=== PATIENT | male | born 1970 | race Caucasian/White ===

== ENCOUNTER 2016-09-20 15:55 | Inpatient (IN) | payer OTHER ==
--- NOTE | ~2016-09-20 | A ---
[facility] Nutrition Therapy DATE: 09/22/16 Patient: KATY DONALDUTSON Physician: EMELY Address: [facility] Room/Bed: [address], Zip: [place] [address] Admit Date: 09/20/16 Date of : [birth year] Height: 5 10 Weight: [phone] NUTRITIONAL ASSESSMENT: REASON: Large entree request Anthropometrics: BMI: 39 (Stage II obese) Labs: A!C 5.9, glucose well controlled Diet: Consistent carb Recommendations: Due to the patients BMI indicating obesity he is not appropriate to receive large portion entrees, however we will send large portion F/V with dinner. Respectfully, Vickie Church RD, LD Food and Nutritional Services [facility] cc: client file
--- NOTE | ~2016-09-20 | HP ---
Unit #: [id number] #: [id number] Patient: ALEXIS HARRISON [id number] [place] [address] [id number] MR#: [id number] NAME: ALEXIS HARRISON. ROOM: P175 Age: 46 Sex: M Admission Date: 09/20/2016 : 1970 Attending Physician: Angel Castellanos M.D. Admitting Physician: Angel Castellanos M.D. Primary Care Physician: Primary Care Physician No HISTORY AND PHYSICAL HISTORY OF PRESENT ILLNESS Alexis Harrison is a 46 year old admitted to [facility] because of his abuse of alcohol. He is detoxing. PAST MEDICAL HISTORY 1. Long history of alcohol abuse. 2. Diabetes mellitus. 3. High blood pressure. 4. Morbid obesity. PAST SURGICAL HISTORY Nothing reported. ALLERGIES Xanax, Prozac, Remeron. SOCIAL HISTORY Dips snuff. Drinks at least a fifth of liquor on a daily basis. Admits to using marijuana frequently and has a history of other illicit drug use to include cocaine and amphetamines. FAMILY HISTORY Medically noncontributory. REVIEW OF SYSTEMS CONSTITUTIONAL: No fever or chills. HEENT: Denies any sore throat, ear pain or runny nose. CARDIOVASCULAR: Denies chest pain, irregular heart rhythm or palpitations. CHEST: Denies shortness of breath or cough. No hemoptysis. GASTROINTESTINAL: Denies nausea, vomiting, diarrhea or chronic constipation. ENDOCRINE: Denies history of increased thirst or urination. No recent significant weight loss or gain. GENITOURINARY: Denies dysuria, frequency, or hematuria. SKIN: Denies any rashes. HEMATOLOGIC: Denies history of increased bleeding or bruising. MUSCULOSKELETAL: Denies any hot, swollen joints. No generalized muscle pain. NEUROLOGIC: Denies problems with vision or speech. No frequent, severe headaches. No numbness, tingling or weakness in any extremities. Denies loss of bladder or bowel control. CURRENT MEDICATIONS Unit #: [id number] #: [id number] Patient: ALEXIS HARRISON 1. Detox protocol. 2. Zestril 20 mg q. day. PHYSICAL EXAMINATION GENERAL: Alert, morbidly obese. No apparent distress. VITAL SIGNS: Blood pressure 122/76, heart rate 66, respirations 16, and temperature 98.6. WEIGHT: 275. HEIGHT: 5 feet 10 inches. SKIN: Warm and dry without rash or lesion. HEENT: Normocephalic. TMs not viewed. Oral and nasal passages clear. Conjunctivae clear. PERRLA. EOMs intact. NECK: Supple without lymphadenopathy or thyromegaly. HEART: Regular rate and rhythm without murmur. LUNGS: Clear. ABDOMEN: Soft, nontender. : Not done. EXTREMITIES: No evidence of cyanosis, clubbing or edema. Moves all without focal deficit. NEUROLOGICAL: Grossly within normal limits. Cranial Nerves: II: Visual blanco are intact. III, IV AND : Extraocular movements are intact. Pupils are equal, round and reactive to light. V: Facial sensation is grossly normal. VII: Facial movements and expression are normal. VIII: Auditory acuity grossly intact. IX, X: Uvula is midline. Phonation is normal. XI: Patient shrugs shoulders and turns head normally. XII: Tongue protrudes in the midline. Sensory and Motor Function: Sensory and motor sensation is grossly normal. Motor: moves all extremities well. Coordination: Gait is normal. Deep Tendon Reflexes: Intact. IMPRESSION Psychiatric admission. RECOMMENDATIONS PSYCHIATRIC: Per psychiatrist. MEDICAL: I see no contraindication to participate in this facility's activities. MEDICAL PROGNOSIS Good. MEDICAL CONDITION Stable. Dictated by... Ellen Rodrigues P.A.-C. for Rajendra Mcguire/joselin TD: 09/21/2016 14:07 JOB #: [id number] Unit #: [id number] #: [id number] Patient: ALEXIS HARRISON HISTORY AND PHYSICAL X Ellen Rodrigues HISTORY AND PHYSICAL
--- NOTE | ~2016-09-20 | PA ---
Unit #: [id number] #: [id number] Patient: KATY HARRISON [id number] [place] [address] [id number] MR#: [id number] NAME: KATY HARRISON. ROOM: P175 Age: 46 Sex: M Admission Date: 09/20/2016 : 1970 Date of Assessment: 09/21/2016 Attending Physician: Angel Castellanos M.D. Admitting Physician: Angel Castellanos M.D. Primary Care Physician: Primary Care Physician No PSYCHIATRIC ASSESSMENT INFORMANTS The patient reliability, fair; chart reliability, good. CHIEF COMPLAINT Alcohol detox. HISTORY OF PRESENT ILLNESS Mr. Mariee is a 46-year-old male, seen on with the above-mentioned complaint. The patient reports that he has a history of hypertension and diabetes and currently withdrawing from alcohol. The patient reports that he was using alcohol, fifth of whiskey, daily; last use 09/11/2016. The patient also reported using marijuana, age of onset 15; alcohol, age of onset 14; crack cocaine, age of onset 31; amphetamine, age of onset 31. The patient reported history of blackout. No history of any HIV or hepatitis. No history of any IV drug use. The patient is currently reporting sweats, agitated, muscle cramping, vomiting, tremors. The patient reported drinking three quarts of [employer] when I can get the whiskey. The patient reported poor sleep, nightmares, history of seizure, withdrawal from alcohol. The patient reported having hypertension, diabetes. The patient is taking lisinopril for hypertension, but denied any suicidal or homicidal ideation. Denied any psychotic symptom, but at times, hearing his name, auditory hallucination. Denied any visual hallucination. Needing inpatient admission at this time for psychiatric stabilization. PAST PSYCHIATRIC HISTORY Remarkable for history of inpatient treatment for detox in 2012. FAMILY HISTORY/SOCIAL HISTORY The patient lives by himself. FAMILY PSYCHIATRIC ILLNESS Remarkable for history of brother on meth and mother with history of dementia. No history of any abuse. MEDICAL HISTORY Remarkable for hypertension, obesity. Musculoskeletal; muscle strength and tone. No atrophy or abnormal movement. Gait normal. MEDICATION HISTORY The patient is on lisinopril. Unit #: [id number] #: [id number] Patient: KATY HARRISON ALLERGIES No known drug allergies. SUBSTANCE ABUSE HISTORY Please see above. REVIEW OF SYSTEMS HEENT: Eyes, clear. Ears, nose, mouth and throat; clear. CARDIOVASCULAR: Unremarkable. RESPIRATORY: Unremarkable. GI: Unremarkable. : Unremarkable. SKIN: Unremarkable. LYMPH NODE: Unremarkable. NEUROLOGIC: Unremarkable. ENDOCRINE: Unremarkable. HEMATOLOGIC: Unremarkable. ALLERGIC/IMMUNOLOGIC: Unremarkable. MUSCULOSKELETAL: Muscle strength and tone. No atrophy or abnormal movement. Gait normal, except as mentioned above. MENTAL STATUS EXAMINATION CONSTITUTIONAL: Measurement of vital signs; temperature is 98.3, pulse 66, respirations 17, blood pressure 122/77, height 5 feet 10 inches, weight 275 pounds. GENERAL APPEARANCE: The patient dressed casually. The patient did not show any facial deformity. MUSCULOSKELETAL: Please see above. PSYCHIATRIC EXAMINATION Description of speech, regular rate. Description of thought process, goal directed. Description of association, intact. Description of abnormal psychotic thinking; guarded, paranoid, reported hearing things, mood lability, substance abuse. Denied any suicidal or homicidal ideation. Description of the patient's judgment: Concerning everyday activity, poor; social situation, poor; concerning psychiatric condition, poor. Complete mental status examination; oriented in time, place, and person. Recent and remote memory, fair. Attention span and concentration, fair. Language; able to name object, repeat phrases. Fund of knowledge; aware of current event, passive vocabulary intact. Mood and affect, sad and dysphoric. Insight and judgment, fair to poor. ASSETS AND LIABILITIES Assets; the patient is articulate, able to take care of his ADL. Liabilities; history of substance abuse, depression. ADMITTING DIAGNOSES Psychiatric: 1. Alcohol use disorder, severe, F10.20; mood disorder, not otherwise specified, F32.9. Secondary diagnosis: Deferred. Medical diagnosis: Hypertension, obesity. Stressors: Psychosocial stressors. PSYCHIATRIC PLAN, TREATMENT GOAL, AND DISCHARGE PLAN Unit #: [id number] #: [id number] Patient: KATY HARRISON 1. Advised to admit the patient on the inpatient unit. Provide safe, supportive, and structured environment. 2. Ordered labs; CBC, CMP, UA, and UDS. 3. Precaution for detox monitoring, detox protocol. The patient to attend all the programing on the inpatient unit, group therapy, individual therapy, family session. Also, monitor for seizures and mood symptom. If needed, consider medication. 4. Treatment goal to attain euthymic mood, gain insight into his problem, and learn coping skills. 5. Discharge plan; plan to stabilize the patient and consider followup in outpatient program. ESTIMATED LENGTH OF STAY 5 days. Dictated by... Rajendra Bland/efe TD: 09/22/2016 04:08 JOB #: [id number] PSYCHIATRIC ASSESSMENT X Angel Castellanos MD PSYCHIATRIC ASSESSMENT
--- NOTE | ~2016-09-20 | PN ---
Unit #: [id number] #: [id number] Patient: ALEXIS HARRISON [id number] [facility] [address] [place] [address] [id number] I MR#: [id number] NAME: ALEXIS HARRISON. ROOM: P175 Age: 46 Sex: M Admission Date: 09/20/2016 : 1970 Attending Physician: Angel Castellanos M.D. Admitting Physician: Angel Castellanos M.D. Primary Care Physician: Gloria Primary Care Physician [facility] PROGRESS NOTES DATE 09/23/2016. DISCUSSION Alexis Harrison is a 46-year-old male. The patient reported blood pressure is dropping. The patient is currently on antidepressant. The patient reported that he would like to go to a 30-day program from here. The patient reports making progress. Still isolative and guarded. Complete review of systems unremarkable. MENTAL STATUS EXAMINATION General appearance, the patient is dressed casually. Attention and concentration fair. Oriented to place and person. Vital signs 98.4, 54, 90/59. The patient was able to maintain safe behavior. Speech monotone. Thought process appropriate. The patient denied any thoughts of harming self or others or psychotic symptoms. The patient's recent and remote memory poor. Insight and judgment poor. DIAGNOSES 1. Alcohol use disorder, severe. 2. Mood disorder, NOS. ASSESSMENT/PLAN Advised to continue with current medication and therapy protocol. Will monitor for response to medication and make further adjustment in medication as needed. Dictated by... Rajendra Bland/savanna TD: 09/25/2016 13:59 JOB #: [id number] Unit #: [id number] #: [id number] Patient: ALEXIS HARRISON [facility] PROGRESS NOTES X Angel Castellanos MD PROGRESS NOTE
--- NOTE | ~2016-09-20 | PN ---
Unit #: [id number] #: [id number] Patient: ALEXIS HARRISON [id number] [facility] [address] [place] [address] [id number] I MR#: [id number] NAME: ALEXIS HARRISON. ROOM: P175 Age: 46 Sex: M Admission Date: 09/20/2016 : 1970 Attending Physician: Angel Castellanos M.D. Admitting Physician: Angel Castellanos M.D. Primary Care Physician: Gloria Primary Care Physician [facility] PROGRESS NOTES DATE 09/24/2016. DISCUSSION Alexis Harrison is a 46-year-old male. The patient was interviewed and chart reviewed. Obtained information from the nursing staff. The patient was compliant and cooperative. Vital signs 98.4, 62, 139/81. The patient was able to maintain safe behavior. Isolative and guarded. Complete review of systems unremarkable. MENTAL STATUS EXAMINATION General appearance, the patient was dressed casually. Attention and concentration fair. Oriented to place, person. Mood and affect sad and dysphoric. Speech monotone. Thought process concrete. The patient denies any thoughts of harming self or others. No psychotic symptoms. Recent and remote memory poor. Insight and judgment poor. DIAGNOSIS Alcohol use disorder, severe. ASSESSMENT/PLAN Advised to continue with current medication and therapy protocol. Will monitor for response to medication and make further adjustment in medication. Dictated by... Rajendra Bland/savanna TD: 09/25/2016 14:05 JOB #: [id number] Unit #: [id number] #: [id number] Patient: ALEXIS HARRISON [facility] PROGRESS NOTES X Angel Castellanos MD PROGRESS NOTE
--- NOTE | ~2016-09-20 | PN ---
Unit #: [id number] #: [id number] Patient: ALEXIS HARRISON [id number] [facility] [address] [place] [address] [id number] I MR#: [id number] NAME: ALEXIS HARRISON. ROOM: P1 Age: 46 Sex: M Admission Date: 09/20/2016 : 1970 Attending Physician: Angel Castellanos M.D. Admitting Physician: Angel Castellanos M.D. Primary Care Physician: Primary Care Physician No GABRIELCE PROGRESS NOTES DATE 09/22/2016 DISCUSSION Alexis Harrison is a 46-year-old male seen on 09/22/2016. Patient interviewed, reviewed chart, obtained information from nursing staff. Patient withdrawn, isolative, guarded, flat affect. Patient reports still having a lot of problem with anxiety . The patient's vital signs are 97.5, 74, 142/72. The patient had a lot of problems with the withdrawal symptoms. Complete review of systems unremarkable. MENTAL STATUS EXAMINATION General appearance: Patient dressed casually. Attention span and concentration poor. Oriented in place and person. Mood and affect labile, anxious, nervous, Speech rapid. Thought processes circumstantial, guarded, but are not isolative, seclusive. Recent and remote memory poor. Insight and judgment poor. DIAGNOSIS Alcohol use disorder, severe ASSESSMENT/PLAN Advised to start patient on Librium 25 mg 3 times a day, advised to hold if patient too sleepy, plan to gradually withdraw this medication. Dictated by... Rajendra Bland/mira TD: 09/24/2016 09:25 JOB #: [id number] Unit #: [id number] #: [id number] Patient: ALEXIS HARRISON [facility] PROGRESS NOTES X Angel Castellanos MD PROGRESS NOTE
--- NOTE | ~2016-09-20 | DS ---
Unit #: [id number] #: [id number] Patient: KATY HARRISON [id number] [place] [address] [id number] I MR#: [id number] NAME: KATY HARRISON. ROOM: 75 Age: 46 Sex: M Admission Date: 09/20/2016 : 1970 Discharge Date: 09/25/2016 Attending Physician: Angel Castellanos M.D. Primary Care Physician: Primary Care Physician No DISCHARGE SUMMARY REASON FOR ADMISSION Detox from alcohol. DIAGNOSTIC STUDIES LABORATORY RESULTS: Remarkable for AST 56 and ALT 42. HOSPITAL COURSE The patient was admitted to inpatient unit on 09/20/2016 and discharged on 09/25/2016. The patient was treated on the inpatient unit with group therapy, individual therapy, medication management, detox protocol, and chemical dependency group. The patient responded well with the above modalities of treatment. Subsequently, the patient was discharged home. The patient was advised to continue with Zestril for hypertension 20 mg daily. DISCHARGE MEDICATIONS Zestril 20 mg daily for hypertension. DISCHARGE DIAGNOSES Psychiatric: 1. Alcohol use disorder, severe, F10.20. 2. Mood disorder, not otherwise specified, F32.9. Secondary diagnosis: Deferred. Medical diagnoses: Hypertension, obesity. Stressors: Psychosocial stressors. DISCHARGE INSTRUCTIONS The patient is to follow up in outpatient clinic as per director social. CONDITION ON DISCHARGE The patient was pleasant and cooperative. Denied any psychotic symptom or any suicidal ideation. PROGNOSIS Guarded. DIET AND ACTIVITY As tolerated. Dictated by... Unit #: [id number] #: [id number] Patient: KATY HARRISON Rajendra Bland/efe TD: 09/26/2016 12:47 JOB #: [id number] DISCHARGE SUMMARY X Angel Castellanos MD X DISCHARGE SUMMARY
--- NOTE | ~2016-09-20 | PN ---
Unit #: [id number] #: [id number] Patient: ALEXIS HARRISON [id number] [facility] [address] [place] [address] [id number] I MR#: [id number] NAME: ALEXIS HARRISON. ROOM: P1 Age: 46 Sex: M Admission Date: 09/20/2016 : 1970 Attending Physician: Angel Castellanos M.D. Admitting Physician: Angel Castellanos M.D. Primary Care Physician: Primary Care Physician Gloria GUTHRIE PROGRESS NOTES DATE OF SERVICE 09/21/2016 DISCUSSION Alexis is a 46-year-old male seen on 09/21/2016. The patient interviewed, chart reviewed. Obtained information from nursing staff. The patient was compliant, cooperative. Mood sad, dysphoric, flat affect. The patient was in bed, isolative, guarded. Complete Review of Systems: Unremarkable. MENTAL STATUS EXAMINATION General Appearance: The patient dressed casually. Attention span, concentration: Fair. Oriented in place and person. Mood and affect: Sad, dysphoric. Speech: Monotone. Thought process: [place]. The patient denied any thoughts of harming self or others but guarded, withdrawn, isolative. Recent and remote memory: Poor. Insight and judgment: Poor. DIAGNOSIS Alcohol use disorder, severe. ASSESSMENT/PLAN Advised to continue with current medication and therapeutic protocol. We will monitor response to medication and make further adjustment of medication as the patient is still having significant symptoms of withdrawal and monitor for seizures. Dictated by... Rajendra Bland/joselin TD: 09/22/2016 11:30 JOB #: [id number] Unit #: [id number] #: [id number] Patient: ALEXIS HARRISON [facility] PROGRESS NOTES X Angel Castellanos MD PROGRESS NOTE
--- NOTE | ~2016-09-20 | CO ---
Unit #: [id number] #: [id number] Patient: KATY HARRISON [id number] [place] [address] [id number] I MR#: [id number] NAME: KATY HARRISON. ROOM: [facility] Age: 46 Sex: M Admission Date: 09/20/2016 : 1970 Attending Physician: Angel Castellanos M.D. Consultation Date: 09/21/2016 CONSULTATION REPORT MJ Valentin is a 46-year-old, admitted with a history of alcohol abuse. He also gives history of diabetes mellitus, but is admitted on no medications. He admits that he has no current prescription and has not seen a doctor in quite some time. On admission, his fasting blood sugar was 104. He has no complaints of polydipsia or polyuria. PLAN The patient can follow up with his primary care physician for complete evaluation of his self-reported diagnosis of diabetes. No plans to start any medications at this time. Dictated by... Ellen Rodrigues P.A.-C. for Rajendra Mcguire/efe TD: 09/23/2016 13:25 JOB #: [id number] CONSULTATION REPORT X Ellen Rodrigues CONSULTATION REPORT
[2016-09-21 09:44] LABS: BASOPHIL% 0.6 % (0-2.5); EOSINOPHIL# 0.2 X10e3 (0-0.7); HEMATOCRIT 45.1 % (38.0-50.0); HEMOGLOBIN 15.3 gm/dL (13.0-16.0); LYMPHOCYTE# 1.9 X10e3 (1.0-3.5); LYMPHOCYTE% 24.9 % (17.0-45.0); MEAN CELL VOLUME 99.8 FL (83-96); MEAN PLATELET VOLUME 8.4 FL (6.5-11.5); MONOCYTE# 0.5 X10e3 (0-1.0); MONOCYTE% 6.8 % (3.0-12.0); NEUTROPHIL% 64.7 % (40-75); PLATELET COUNT 131 X10e3 (140-420); RED BLOOD COUNT 4.51 X10e (3.90-5.60); RED CELL DISTRIBUTION WIDTH 15.6 % (11.0-15.5); WHITE BLOOD COUNT 7.7 X10e3 (4.0-10.5)
[2016-09-21 09:53] LABS: DIFF IND NO
[2016-09-21 10:23] LABS: ALBUMIN SERUM 3.8 g/dL (3.5-5.0); ALKALINE PHOSPHATASE 84 U/L (32-92); ALT (SGPT) 42 U/L (10-40); AST (SGOT) 56 U/L (10-42); BILIRUBIN,TOTAL 1.6 mg/dL (0.2-2.0); BLOOD UREA NITROGEN 15 mg/dL (9-23); BUN/CREATININE RATIO 18.75; CALCIUM SERUM 9.1 mg/dL (8.4-10.2); CARBON DIOXIDE 27 mmol/L (22-31); CHLORIDE 100 mmol/L (100-111); CREATININE SERUM 0.8 mg/dL (0.6-1.4); GLOM FILT RATE Estimated ABOVE60 mL/min (>60); GLUCOSE FASTING 104 mg/dL (70-110); POTASSIUM 4.7 mmol/L (3.5-5.1); PROTEIN TOTAL SERUM 7.2 g/dL (6.0-8.3); SODIUM 137 mmol/L (135-145)
[2016-09-21 15:32] LABS: THYROID STIMULATING HORMONE 2.46 uIU/ml (0.34-5.60)
[2016-09-21 15:39] LABS: FREE THYROXIN (T4) 0.93 ng/dL (0.58-1.64)
== END 2016-09-25 11:30 | disposition home or self-care (01) | DRG 897 ==
LOC: P1E 15:55
PROVIDERS: Psychiatry & Neurology Psychiatry
PROC: HZ2ZZZZ Detoxification Services for Substance Abuse Treatment (ICD-10-PCS; principal; 2016-09-20)
DX: F10.239 Alcohol dependence with withdrawal, unspecified (principal); E66.01 Morbid (severe) obesity due to excess calories; I10 Essential (primary) hypertension; F32.9 Major depressive disorder, single episode, unspecified; E11.9 Type 2 diabetes mellitus without complications
CPT/HCPCS: 80053; 82947; 83036; 84439; 84443; 85025; 86592

== ENCOUNTER 2016-11-16 17:06 | Inpatient (IN) | payer OTHER ==
--- NOTE | ~2016-11-16 | PA ---
Unit #: [id number] #: [id number] Patient: ALEXIS HARRISON [id number] [facility] [address] [place] [address] [id number] MR#: [id number] NAME: ALEXIS HARRISON. ROOM: P177 Age: 46 Sex: M Admission Date: 11/16/2016 : 1970 Date of Assessment: 11/17/2016 Attending Physician: Angel Castellanos M.D. Admitting Physician: Angel Castellanos M.D. Primary Care Physician: Primary Care Physician No PSYCHIATRIC ASSESSMENT REASON FOR ADMISSION Alcohol detox. HISTORY OF PRESENT ILLNESS Mr. Alexis Harrison is a 46-year-old male, presented for alcohol detox. The patient reported drinking half a gallon of alcohol on a daily basis for the last 2 weeks. The patient reported was sober for almost 6 weeks, recently relapsed. The patient also reported using heroin and spice in the last week. The patient reported history of withdrawal seizures. Currently, exhibiting tremor, muscle cramping, and diaphoresis. The patient scored 17 on CIWA score and exhibiting depressive symptoms. The patient denied any plans for suicide, but feeling of hopelessness and worthlessness. The patient needed inpatient admission at this time for psychiatric stabilization. PAST PSYCHIATRIC HISTORY Remarkable for history of previous treatment at [facility] and [facility] for [facility] and inpatient 2013 for suicidal ideation. FAMILY HISTORY AND SOCIAL HISTORY The patient has poor support system. Currently, homeless. No known history of any abuse. History of drug abuse in brother and history of dementia in mother. MEDICAL HISTORY Remarkable for history of hypertension and diabetes. MEDICATION HISTORY The patient is currently on none. ALLERGIES No known drug allergies. SUBSTANCE ABUSE HISTORY The patient reported tobacco use, age of onset 15; alcohol, age of onset 14; marijuana, age of onset 15; crack cocaine, age of onset 31; opioid, age of onset 46; amphetamine, age of onset 31; and spice, age of onset 46. The patient reported abdominal cramping, muscle cramping, diaphoresis, and tremor. REVIEW OF SYSTEMS HEENT: Eyes, clear. Ears, nose, mouth, and throat; clear. Unit #: [id number] #: [id number] Patient: ALEXIS HARRISON CARDIOVASCULAR: Unremarkable. RESPIRATORY: Unremarkable. GI: Unremarkable. : Unremarkable. SKIN: Unremarkable. LYMPH NODE: Unremarkable. NEUROLOGIC: Unremarkable. ENDOCRINE: Unremarkable. HEMATOLOGIC: Unremarkable. ALLERGIC/IMMUNOLOGIC: Unremarkable. MUSCULOSKELETAL: Muscle strength and tone, no atrophy or abnormal movement. Gait normal. MENTAL STATUS EXAMINATION CONSTITUTIONAL: Measurement of vital signs; temperature 98.3, heart rate 80, respiratory rate 16, and blood pressure 147/93. Height 5 feet 10 inches and weight 287 pounds. GENERAL APPEARANCE: The patient dressed casually. The patient did not show any facial deformity. MUSCULOSKELETAL: Please see above. PSYCHIATRIC EXAMINATION Description of speech, regular rate and normal volume. Description of thought process, circumstantial. Description of association, intact. Description of abnormal psychotic thinking; the patient was guarded, sad, and depressed, but denied any suicidal or homicidal ideation, but having withdrawal symptoms from alcohol. Description of the patient's judgment: Concerning everyday activity, poor. Social situation, poor. Concerning psychiatric condition, poor. Complete mental status examination; oriented in time, place, and person. Recent and remote memory, poor. Attention span and concentration, poor. Language, able to name object and repeat phrases. Fund of knowledge, fair. Vocabulary, fair. Mood and affect, sad and dysphoric. Insight and judgment, fair to poor. ASSETS AND LIABILITIES Assets, the patient is articulate and able to take care of his ADL. Liability, history of substance abuse and depression. ADMITTING DIAGNOSES Psychiatric: Alcohol use disorder, severe, F10.20 and mood disorder, not otherwise specified, F32.9. Secondary diagnosis: Deferred. Medical diagnosis: Diabetes mellitus and hypertension. Stressors: Psychosocial stressors. PSYCHIATRIC PLAN AND TREATMENT GOAL AND DISCHARGE PLAN 1. Advised to admit the patient on the inpatient unit. Provide safe, supportive, and structured environment. 2. Ordered labs; CBC, CMP, UA, UDS, and hemoglobin A1c. 3. Precaution for aggression and self-harm. 4. Detox protocol and detox monitoring. The patient to attend all the programing on the inpatient unit. We will also get a medical consultation to treat the patient's medical condition. Unit #: [id number] #: [id number] Patient: ALEXIS HARRISON TREATMENT GOAL To attain euthymic mood, gain insight into his problem, and learn coping skills. DISCHARGE PLAN Plan to stabilize the patient and consider followup in outpatient program. ESTIMATED LENGTH OF STAY 5 days. Dictated by... Rajendra Bland/efe TD: 11/17/2016 17:10 JOB #: [id number] PSYCHIATRIC ASSESSMENT Page 1 of 1 X Angel Castellanos MD PSYCHIATRIC ASSESSMENT
--- NOTE | ~2016-11-16 | PN ---
Unit #: [id number] #: [id number] Patient: ALEXIS HARRISON [id number] [facility] [address] [place] [address] [id number] MR#: [id number] NAME: ALEXIS HARRISON. ROOM: [facility] Age: 46 Sex: M Admission Date: 11/16/2016 : 1970 Attending Physician: Angel Castellanos M.D. Admitting Physician: Angel Castellanos M.D. Primary Care Physician: Primary Care Physician Gloria GUTHRIE PROGRESS NOTES DATE 11/18/2016 DISCUSSION Alexis is a 46-year-old male seen on 11/18/2016. Patient interviewed, chart reviewed, obtained information from the nursing staff. The patient was compliant and cooperative. Mood sad and dysphoric. Patient currently having withdrawal symptoms from alcohol. Patient vital signs 98.3, 80, 16, 147/93. Complete review of systems unremarkable. MENTAL STATUS EXAMINATION General appearance: Patient is dressed casually. Attention span and concentration fair. Oriented in time, place and person. Mood and affect sad and dysphoric. Speech monotone. Thought process concrete. Patient denied any thoughts of harming self or others. Recent and remote memory poor. Insight and judgement poor. DIAGNOSIS Alcohol use disorder, moderate. ASSESSMENT AND PLAN Advise to continue with current medication and therapeutic protocol. If needed consider further adjustment of medication. Dictated by... Rajendra Bland/thelma TD: 11/19/2016 09:43 JOB #: [id number] Unit #: [id number] #: [id number] Patient: ALEXIS HARRISON [facility] PROGRESS NOTES Page 1 of 1 X Angel Castellanos MD PROGRESS NOTE
--- NOTE | ~2016-11-16 | DS ---
Unit #: [id number] #: [id number] Patient: KATY HARRISON [id number] [facility] [address] [place] [address] [id number] MR#: [id number] NAME: KATY HARRISON. ROOM: 77 Age: 46 Sex: M Admission Date: 11/16/2016 : 1970 Discharge Date: 11/20/2016 Attending Physician: Angel Castellanos M.D. Primary Care Physician: Primary Care Physician No DISCHARGE SUMMARY REASON FOR ADMISSION Alcohol detox. DIAGNOSTIC STUDIES LABORATORY RESULTS: AST 56, ALT 42. HOSPITAL COURSE The patient was admitted to inpatient unit on 11/16/2016 and discharged on 11/20/2016. The patient was treated on the inpatient unit with group therapy, individual therapy, medication management. The patient responded well with the above modalities of treatment. Subsequently, the patient was discharged with a plan to follow up in outpatient program. DISCHARGE MEDICATIONS None. DISCHARGE DIAGNOSES Psychiatric: Alcohol use disorder, severe, F10.20; mood disorder, not otherwise specified, F32.9. Secondary diagnosis: Deferred. Medical diagnosis: Diabetes mellitus, hypertension. Stressors: Psychosocial stressors. DISCHARGE INSTRUCTIONS The patient to follow up in outpatient clinic as per oncology social work. CONDITION ON DISCHARGE The patient was pleasant and cooperative. Denied any psychotic symptom or any suicidal ideation. PROGNOSIS Guarded. DIET AND ACTIVITY As tolerated. Dictated by... Angel Castellanos M.D. Unit #: [id number] #: [id number] Patient: KATY HARRISON SZC/modl TD: 11/20/2016 14:51 JOB #: [id number] DISCHARGE SUMMARY Page 1 of 1 X Angel Castellanos MD DISCHARGE SUMMARY
--- NOTE | ~2016-11-16 | PN ---
Unit #: [id number] #: [id number] Patient: KATY HARRISON [id number] [facility] [address] [place] [address] [id number] MR#: [id number] NAME: KATY HARRISON. ROOM: [facility] Age: 46 Sex: M Admission Date: 11/16/2016 : 1970 Attending Physician: Angel Castellanos M.D. Admitting Physician: Angel Castellanos M.D. Primary Care Physician: Primary Care Physician No [facility] PROGRESS NOTES DATE 11/19/2016 DISCUSSION The patient diagnosed with alcohol abuse disorder, mood disorder, NOS. The patient reports making progress. Denied any side effects from the medication. Sleeping good. REVIEW OF SYSTEMS Complete review of systems unremarkable. MENTAL STATUS EXAMINATION General appearance: Patient dressed casually. Attention span and concentration, fair. Oriented to place and person. Mood and affect, sad and dysphoric. Speech, monotone. Thought process, concrete. The patient denied any thoughts of harming self or others but guarded. Recent and remote memory, poor. Insight and judgment, poor. DIAGNOSES 1. Alcohol use disorder, severe. 2. Mood disorder, NOS. ASSESSMENT/PLAN Advised to continue with the current medication and therapeutic protocol and if needed consider further adjustment of medication. Dictated by... Rajendra Bland/joe TD: 11/20/2016 06:58 JOB #: [id number] Unit #: [id number] #: [id number] Patient: KATY HARRISON [facility] PROGRESS NOTES Page 1 of 1 X Angel Castellanos MD PROGRESS NOTE
--- NOTE | ~2016-11-16 | HP ---
Unit #: [id number] #: [id number] Patient: ALEXIS HARRISON [id number] [place] [address] [id number] MR#: [id number] NAME: ALEXIS HARRISON. ROOM: P177 Age: 46 Sex: M Admission Date: 11/16/2016 : 1970 Attending Physician: Angel Castellanos M.D. Admitting Physician: Angel Castellanos M.D. Primary Care Physician: Primary Care Physician No HISTORY AND PHYSICAL HISTORY OF PRESENT ILLNESS Alexis is a 46 year old admitted to [facility] because of his polysubstance abuse which includes alcohol and IV heroin. PAST MEDICAL HISTORY 1. Long history of alcohol abuse. 2. Long history of illicit substance abuse to include IV heroin. 3. Diabetes mellitus. 4. High blood pressure. 5. Morbid obesity. PAST SURGICAL HISTORY Oral. ALLERGIES Xanax, Prozac, Remeron. SOCIAL HISTORY He smokes on occasion. Drinks half gallon of liquor on a daily basis and denies illicit drug use. FAMILY HISTORY Medically noncontributory. REVIEW OF SYSTEMS CONSTITUTIONAL: No fever or chills. HEENT: Denies any sore throat, ear pain or runny nose. CARDIOVASCULAR: Denies chest pain, irregular heart rhythm or palpitations. CHEST: Denies shortness of breath or cough. No hemoptysis. GASTROINTESTINAL: Denies nausea, vomiting, diarrhea or chronic constipation. ENDOCRINE: Denies history of increased thirst or urination. No recent significant weight loss or gain. GENITOURINARY: Denies dysuria, frequency, or hematuria. SKIN: Denies any rashes. HEMATOLOGIC: Denies history of increased bleeding or bruising. MUSCULOSKELETAL: Denies any hot, swollen joints. No generalized muscle pain. NEUROLOGIC: Denies problems with vision or speech. No frequent, severe headaches. No numbness, tingling or weakness in any extremities. Denies loss of bladder or bowel control. CURRENT MEDICATIONS Unit #: [id number] #: [id number] Patient: ALEXIS HARRISON Detox protocol. PHYSICAL EXAMINATION GENERAL: Alert, well-nourished, in no apparent distress. VITAL SIGNS: Blood pressure 146/92, heart rate 90, respirations 16, temperature 98.6. WEIGHT: 287. HEIGHT: 5 feet 10 inches. SKIN: Warm and dry without rash or lesion. HEENT: Normocephalic. TMs not viewed. Oral and nasal passages clear. Conjunctivae clear. PERRLA. EOMs intact. NECK: Supple without lymphadenopathy or thyromegaly. HEART: Regular rate and rhythm without murmur. LUNGS: Clear. ABDOMEN: Soft, nontender. : Not done. EXTREMITIES: No evidence of cyanosis, clubbing or edema. Moves all without focal deficit. NEUROLOGICAL: Grossly within normal limits. Cranial Nerves: II: Visual blanco are intact. III, IV AND : Extraocular movements are intact. Pupils are equal, round and reactive to light. V: Facial sensation is grossly normal. VII: Facial movements and expression are normal. VIII: Auditory acuity grossly intact. IX, X: Uvula is midline. Phonation is normal. XI: Patient shrugs shoulders and turns head normally. XII: Tongue protrudes in the midline. Sensory and Motor Function: Sensory and motor sensation is grossly normal. Motor: moves all extremities well. Coordination: Gait is normal. Deep Tendon Reflexes: Intact. IMPRESSION Psychiatric admission. RECOMMENDATIONS PSYCHIATRIC: Per psychiatrist. MEDICAL: See no contraindications to participate in facility's activities. MEDICAL PROGNOSIS Good. MEDICAL CONDITION Stable. Dictated by... Ellen Rodrigues PAbelardoAAbelardo-George. for Rajendra Mcguire/donnie TD: 11/17/2016 17:25 JOB #: [id number] Unit #: [id number] #: [id number] Patient: ALEXIS HARRISON HISTORY AND PHYSICAL Page 1 of 1 X Ellen Rodrigues HISTORY AND PHYSICAL
[2016-11-18 13:10] LABS: URINE APPEARANCE TURBID; URINE BLOOD NEG (NEG); URINE COLOR ORANGE; URINE GLUCOSE NEG (NEG); URINE KETONE TRACE (NEG); URINE LEUKOCYTE ESTERASE TRACE (NEG); URINE NITRATE POS (NEG); URINE PROTEIN NEG (NEG); URINE SPECIFIC GRAVITY 1.027 (1.003-1.035)
[2016-11-18 13:12] LABS: URBCS1 AUWI 0-2 /[HPF] (0-2); URINE BACTERIA AUWI NEG (NEGATIVE); URINE SQUAMOUS EPITHELIAL CELL NONE SEEN /[HPF]; UWBCS1 AUWI 0-2 (0-5)
[2016-11-18 13:16] LABS: URINE BILIRUBIN NEG (NEG)
[2016-11-18 13:42] LABS: AMPHETAMINE NEG (NEG); BARBITURATES NEG (NEG); BENZODIAZEPINES POS (NEG); COCAINE NEG (NEG); MARIJUANA NEG (NEG); OPIATES NEG (NEG); TRICYCLIC ANTIDEPRESSANTS NEG (NEG); U METHADONE NEG (NEG)
== END 2016-11-20 13:05 | disposition home or self-care (01) | DRG 897 ==
LOC: P1E 17:06
PROVIDERS: Psychiatry & Neurology Psychiatry
PROC: HZ2ZZZZ Detoxification Services for Substance Abuse Treatment (ICD-10-PCS; principal; 2016-11-16)
DX: F10.20 Alcohol dependence, uncomplicated (principal); F11.10 Opioid abuse, uncomplicated; Z68.41 Body mass index [BMI] 40.0-44.9, adult; I10 Essential (primary) hypertension; F39 Unspecified mood [affective] disorder; E11.9 Type 2 diabetes mellitus without complications; Z59.0 Homelessness; E66.01 Morbid (severe) obesity due to excess calories; Z88.8 Allergy status to other drugs, medicaments and biological substances
CPT/HCPCS: 80307; 81003